=== PATIENT | female | born 1985 | race Caucasian/White ===

== ENCOUNTER 2021-11-25 09:07 | Emergency (ER) | payer OTHER ==
[~2021-11-25 09:07] MED LIST: SULFACETAMIDE S15 ML OS
[2021-11-25 10:48] LABS: HEMOGLOBIN 13.4 gm/dl (12.3-15.3); RED BLOOD COUNT 3.56 M/UL (4.00-5.10); WHITE BLOOD COUNT 7.3 K/UL (4.5-11.0)
[2021-11-25 11:01] LABS: BUN/CREATININE RATIO 13 (0-10)
== END 2021-11-25 12:51 | disposition home or self-care (01) ==
LOC: ER1 09:07
PROVIDERS: Physician Assistant
DX: R10.31 Right lower quadrant pain (principal); R10.813 Right lower quadrant abdominal tenderness; F17.210 Nicotine dependence, cigarettes, uncomplicated
CPT/HCPCS: 80053; 81001; 84703; 85025; 99284; Q9967